=== PATIENT | female | born 1985 | race Hispanic/Latino ===

== ENCOUNTER 2022-10-06 08:54 | Outpatient (CLI) | payer OTHER | END 2022-10-06 08:55 | disposition home or self-care (01) | LOC: MRI 08:54 | PROVIDERS: ATTEND Psychiatry & Neurology Neurology | DX: R20.0 Anesthesia of skin (principal); R51.9 Headache, unspecified; M50.321 Other cervical disc degeneration at C4-C5 level; M50.322 Other cervical disc degeneration at C5-C6 level | CPT/HCPCS: 70544; 70553; 72141 ==